=== PATIENT | male | born 1995 | race Caucasian/White ===

== ENCOUNTER 2024-09-21 20:56 | Emergency (ER) | payer MEDICAID ==
[~2024-09-21] VITALS: Ht 185.4 cm; Wt 56.8 kg
[2024-09-21] MEDS: NALOXONE HCL 1 MG/ML 2 ML SYRINGE IVP ONE (21:05)
[2024-09-21 21:19] VITALS: TEMP 98.5
[2024-09-21] MEDS ORDERED: NALO4SPR NASAL (22:02)
[2024-09-21] MEDS: ONDANSETRON HCL 4 MG/2 ML VIAL IVP ONE (23:00)
[2024-09-22 00:45] VITALS: BP 98/59; PULSE 60; RESP 16; O2SAT 98
== END 2024-09-22 01:05 | disposition home or self-care (01) ==
LOC: EDBD 20:56 → EMS 20:56
DX: T50.901A Poisoning by unspecified drugs, medicaments and biological substances, accidental (unintentional), initial encounter (principal); F12.90 Cannabis use, unspecified, uncomplicated; Y92.89 Other specified places as the place of occurrence of the external cause
CPT/HCPCS: 99284; 96374; 96375; J2405